=== PATIENT | male | born 1990 | race Caucasian/White ===

== ENCOUNTER 2019-06-05 18:44 | Emergency (ER) | payer OTHER, SELFPAY ==
[2019-06-05 19:00] VITALS: BP 135/90; PULSE 56; RESP 19; TEMP 36.5; O2SAT 97; BMI 22.0
--- NOTE | 2019-06-05 19:03 | DI.RAD.S_ITS ---
PROCEDURE: XR HAND RT MIN 3V INDICATIONS: Nail gun vs finger TECHNIQUE: 3 views of the hand(s) acquired. COMPARISON: None. FINDINGS: Bones: No fractures or dislocations. Carpal bones are normally aligned. No suspicious bony lesions. Soft tissues: A nail is seen along the palmar aspect of the distal portion of the proximal phalanx of the right 3rd finger. IMPRESSION: Soft tissue involvement of a nail, without bony involvement. If there is strong suspicion for developing osteomyelitis, please consider a dedicated MRI without and with contrast for further evaluation (assuming that there is no contraindication to MRI). Dictated by: Patrick Guardado M.D. on 06/05/2019 at 19:41 Approved by: Patrick Guardado M.D. on 06/05/2019 at 19:42
[2019-06-05 21:17] VITALS: BP 131/83; PULSE 60; RESP 16; O2SAT 99
[2019-06-05] MEDS: OXYCODONE/ACETAMINOPHEN 5/325 TABLET 1 TAB PO (21:23)
[2019-06-05] MEDS: BUPIVACAINE 0.5% (PF) VIAL 30 ML INJ (21:23)
--- NOTE | 2019-06-05 22:02 | ED.UPPEXIN ---
HPI - Extremity Injury (Upper) General Chief Complaint: Extremity Injury, Upper Stated Complaint: NAILED THREW MIDDLE FINGER RIGHT HAND Time Seen by Provider: 06/05/19 20:57 Source: patient Mode of arrival: ambulatory Limitations: no limitations History of Present Illness HPI narrative: Patient comes emergency department complaining of a right middle finger injury after a nail gun discharged and nail shot through his finger. Patient was seen [facility] and sent here. Patient denies numbness or tingling in his finger. He states he having quite a bit of pain. States he has not tried much to move his finger, because the pain. No other injuries. No other complaints at this time. Tetanus is up-to-date. Related Data Previous Rx's Medication Instructions Recorded amoxicillin-pot clavulanate 1 tab PO BID #10 tab 06/05/19 [Augmentin] hydrocodone-acetaminophen 1 tab PO Q6H PRN #3 tab 06/05/19 Allergies Allergy/AdvReac Type Severity Reaction Status Date / Time No Known Drug Allergies Allergy Verified 06/05/19 21:01 Review of Systems Constitutional Constitutional: Denies chills, Denies fatigue, Denies fever(s), Denies frequent falls, Denies lethargy and Denies weakness Eyes Eyes: Denies change in vision, Denies eye discharge, Denies irritation and Denies loss of vision ENT Ears, Nose, Mouth, and Throat: Denies change in voice, Denies dizziness, Denies neck pain, Denies sore throat and Denies throat swelling Cardiovascular Cardiovascular: Denies chest pain, Denies irregular heart rhythm, Denies lightheadedness, Denies palpitations, Denies dyspnea, Denies dyspnea on exertion and Denies orthopnea Respiratory Respiratory: Denies cough, Denies dyspnea, Denies dyspnea on exertion and Denies wheezing Gastrointestinal Gastrointestinal: Denies abdominal pain, Denies change in bowel habits, Denies diarrhea, Denies nausea and Denies vomiting Genitourinary Genitourinary: Denies hematuria, Denies flank pain, Denies urinary incontinence and Denies urinary urgency Musculoskeletal Musculoskeletal: Denies back pain, Denies muscle weakness, Denies neck pain, Denies numbness and Denies tingling Comments: Right middle finger pain Integumentary/Breasts Skin/Breast: Denies pruritus, Denies erythema, Denies rash and Denies wounds Neurologic Neurologic: Denies behavioral changes, Denies confusion, Denies dizziness, Denies frequent falls, Denies loss of vision, Denies numbness, Denies tingling and Denies weakness Psychiatric Psychiatric: Denies anxiety, Denies behavioral changes, Denies confusion, Denies depression, Denies homicidal ideation and Denies suicidal ideation Endocrine Endocrine: Denies fatigue, Denies flushing and Denies palpitations Hematologic/Lymphatic Hematologic/Lymphatic: Denies easy bruising Allergic/Immunologic Allergic/Immunologic: Denies urticaria, Denies throat swelling and Denies wheezing [facility], LAT[facility] Medical History Healthy adult (Acute) Surgical History No pertinent past surgical history (Acute) Social History Smoking Status: Unknown if ever smoked Exam Initial Vital Signs Initial Vital Signs: Vital Signs Temperature 97.7 F 06/05/19 19:00 Pulse Rate 56 L 06/05/19 19:00 Respiratory Rate 19 06/05/19 19:00 Blood Pressure 135/90 06/05/19 19:00 Pulse Oximetry 97 06/05/19 19:00 Const General: cooperative and well developed Nutritional Appearance: well nourished Orientation: alert, awake, oriented x3 and not confused [facility] Head: normocephalic and atraumatic Ears: external ears normal Nose: external nose normal and No nasal discharge Face and sinus: face symmetric and No dry mucous membranes Mouth: oral mucosae normal and moist mucous membranes Teeth and gingiva: dentition normal Eyes General: appearance normal, both eyes and all related structures Eyelids: eyelids normal Conjunctivae: conjunctivae normal Sclera: sclerae normal Pupils: PERRL EOM: EOM intact bilaterally Neck Neck: normal visual inspection, trachea midline, No lymphadenopathy, No midline deformity and No JVD Lymphatic: No lymphedema Chest Chest: normal inspection of the chest Resp Effort & Inspection: normal respiratory effort, able to speak in complete sentences, no respiratory distress and no use of accessory muscles Cardio Pulses: normal peripheral pulses Skin General: no rashes or lesions noted, No jaundice and No petechiae Other: Patient has a puncture wound of his right middle finger middle phalanx with a metal nail piercing through. No erythema, streaking, or drainage Neuro General: alert, oriented x3, gait normal and no focal motor deficits Speech: speech normal Extrem Other: Patient has a non deformed right middle finger with metal nail puncturing through the flexor surface the soft tissue over the middle phalanx. Patient is not able to move the finger with the nail in place, secondary to pain. However, with removal of the nail. Patient is able to resist at both the DIP and PIP joints to flexion. Psych Appearance: well kempt Mental Status: mental status grossly normal Attitude: cooperative Thought Content: normal and suicidality Judgment: judgment good Procedures Foreign Body OTHER Time Out Performed: no Site: right and hand Description of foreign body: other (Nail) Sedation/Analgesia: none Technique: manual removal Confirmed by:: direct visualization Complications: none Post-procedure exam: awake, alert Neurovascular: normal distal pulse, normal capillary fill, distal light touch sensation intact and distal motor function normal Course Course Course Narrative: X-ray was performed and it was found that patient did not have bony injury associated with the nail gun injury. Patient was offered a digital block, but declined, preferring to have the nail removed without local anesthetic. This was done without difficulty by manual pulling. The puncture wound was irrigated with normal saline, and patient was given prophylactic antibiotics. He was treated with analgesia in the emergency department, as well. We have discussed home management of the wound, as well as the usual indications for return. Orders Ordered: Discontinued Medications Hydrocodone Bitart/Acetaminophen (Vicodin Prepack) [facility] Stop: 06/05/19 22:02 Last Admin: 06/05/19 22:35 Dose: 1 bottle Documented by: KASHIFT Amoxicillin/Clavulanate Potassium (Augmentin 875-125 Mg) 1 tab PO NOW ONE Stop: 06/05/19 22:00 Last Admin: 06/05/19 22:34 Dose: 1 tab Documented by: KASHIFT Bupivacaine HCl (Sensorcaine 0.25%) 1 ml INJ INTRA-OP ONE Stop: 06/05/19 21:01 Last Admin: 06/05/19 21:27 Dose: Not Given Documented by: CPRUITT Bupivacaine HCl (Sensorcaine 0.5% (Pf)) 30 ml INJ INTRA-OP ONE Stop: 06/05/19 21:15 Last Admin: 06/05/19 21:23 Dose: 30 ml Documented by: DEVYN Oxycodone/Acetaminophen (Percocet 5/325) 1 tab PO NOW ONE Stop: 06/05/19 21:01 Last Admin: 06/05/19 21:23 Dose: 1 tab Documented by: DEVYN Vital Signs Vital signs: Vital Signs - 8 hr 06/05/19 19:00 06/05/19 21:17 Temperature 97.7 F Pulse Rate 56 L 60 Respiratory Rate 19 16 Blood Pressure 135/90 Blood Pressure [Left Arm] 131/83 Pulse Oximetry 97 99 MDM - Extremity Injury (Upper) Medical Records Attestation: I reviewed the patient's medical records. Imaging Data Right hand x-ray: Radiologist's impression: PROCEDURE: XR HAND RT MIN 3V INDICATIONS: Nail gun vs finger TECHNIQUE: 3 views of the hand(s) acquired. COMPARISON: None. FINDINGS: Bones: No fractures or dislocations. Carpal bones are normally aligned. No suspicious bony lesions. Soft tissues: A nail is seen along the palmar aspect of the distal portion of the proximal phalanx of the right 3rd finger. IMPRESSION: Soft tissue involvement of a nail, without bony involvement. If there is strong suspicion for developing osteomyelitis, please consider a dedicated MRI without and with contrast for further evaluation (assuming that there is no contraindication to MRI). Dictated by: Patrick Guardado M.D. on 06/05/2019 at 19:41 Approved by: Patrick Guardado M.D. on 06/05/2019 at 19:42 Discharge Plan Departure Patient Disposition: Home Clinical Impression: Foreign body finger Discharge Date/Time: 06/05/19 23:04 Instructions: DI for Removal of Foreign Body From Skin Prescriptions: New amoxicillin-pot clavulanate [Augmentin] 875-125 mg tablet 1 tab PO BID Qty: 10 RF: 0 hydrocodone-acetaminophen 5-325 mg tablet 1 tab PO Q6H PRN (Reason: pain) Qty: 3 RF: 0 Referrals: [facility] [Provider Group]
[2019-06-05] MEDS: AMOXICILLIN/CLAV 875/125 MG 1 TAB PO (22:34)
[2019-06-05] MEDS: HYDROCODONE/ACET 5/325 PREPACK 1 BOTTLE MISC (22:35)
== END 2019-06-05 23:04 | disposition home or self-care (01) ==
PROVIDERS: Emergency Provider Emergency Medicine
DX: S60.452A Superficial foreign body of right middle finger, initial encounter (principal); Y99.0 Civilian activity done for income or pay
CPT/HCPCS: 73130; 99282; 99283